=== PATIENT | male | born 1955 | race Caucasian/White ===

== ENCOUNTER 2018-01-26 17:01 | Emergency (ER) | payer OTHER ==
[~2018-01-26] VITALS: Ht 165.1 cm; Wt 68.0 kg
[2018-01-26 17:07] VITALS: Ht 165.1 cm; Wt 68.0 kg
[2018-01-26 19:42] VITALS: BP 139/86
== END 2018-01-26 19:42 | disposition home or self-care (01) ==
LOC: ED 17:01
DX: S30.0XXA Contusion of lower back and pelvis, initial encounter (principal); S80.11XA Contusion of right lower leg, initial encounter; W22.8XXA Striking against or struck by other objects, initial encounter; Y93.89 Activity, other specified; Y92.89 Other specified places as the place of occurrence of the external cause; Y99.8 Other external cause status
CPT/HCPCS: J1885; J2405; J3010